=== PATIENT | female | born 1985 | race Asian ===

== ENCOUNTER 2021-06-27 11:04 | Inpatient (IN) | payer MEDICAID ==
[~2021-06-27] VITALS: Ht 172.7 cm; Wt 69.0 kg
[~2021-06-27 11:04] MED LIST: LITH300C3 PO; OLAN10TA74 PO
[2021-06-27] MEDS ORDERED: LORazepam 2 MG TABLET PO PRN (16:30)
[2021-06-27] MEDS ORDERED: INFLUENZA VIRUS VACCINE QVS 2021-22 (6MO+)/PF 60 MCG/0.5 ML SYRINGE IM. ONE (16:30)
[2021-06-27] MEDS ORDERED: HALOPERIDOL 5 MG TABLET PO PRN (16:30)
[2021-06-27] MEDS ORDERED: ZOLPIDEM TARTRATE 10 MG TABLET PO PRN (16:30)
[2021-06-27 17:54] VITALS: BP 100/65
[2021-06-28 00:19] VITALS: BP 102/63
[2021-06-28 07:18] LABS: BASOPHILS % (AUTO) 2.2 % (0.0-2.0); EOSINOPHILS % (AUTO) 4.5 % (1.0-6.0); HEMATOCRIT 32.9 % (36-46); HEMOGLOBIN 10.5 g/dL (12.0-16.0); LYMPHOCYTES # (AUTO) 1.3 K/uL (1.0-4.8); LYMPHOCYTES % (AUTO) 32.9 % (22.0-44.0); MEAN CORPUSCULAR HEMOGLOBIN 25.5 pg (26.0-34.0); MEAN CORPUSCULAR HGB CONC 31.9 G/dL (31.0-37.0); MEAN CORPUSCULAR VOLUME 80 fL (80-100); MONOCYTES # (AUTO) 0.5 K/uL (0.1-1.0); NEUTROPHILS # (AUTO) 1.9 K/uL (1.8-7.7); NEUTROPHILS % (AUTO) 47.4 % (40.0-70.0); PLATELET COUNT (AUTO) 312 K/uL (150-450); RED BLOOD CELL COUNT(AUTO) 4.11 MIL/uL (4.00-5.20); RED CELL DISTRIBUTION WIDTH 17.7 % (11.5-14.5)
[2021-06-28 07:44] LABS: HEMOGLOBIN A1C 5.6 % (3.8-5.6)
[2021-06-28 07:56] LABS: ALANINE AMINOTRANSFERASE 7 U/L (12-78); ALBUMIN 3.1 g/dL (3.4-5.0); ALKALINE PHOSPHATASE 45 U/L (46-116); ANION GAP 11 mmol/L (8-16); ASPARTATE AMINOTRANSFERASE 11 U/L (15-37); BILIRUBIN,TOTAL 0.4 mg/dL (0.1-1.0); CALCIUM, TOTAL 8.7 mg/dL (8.8-10.5); CARBON DIOXIDE 27 mmol/L (22-29); CHLORIDE 106 mmol/L (98-107); CHOL/HDL RATIO 3.6 (3.9-5.7); CHOLESTEROL 138 mg/dL (131-200); CREATININE 0.88 mg/dL (0.60-1.30); FREE T4 (FREE THYROXINE) 1.56 ng/dL (0.76-1.46); GLOMERULAR FILTR. RATE CALC > 60 mL/min (>60); GLUCOSE,RANDOM 83 mg/dL (70-110); HCG,QUANTITATIVE < 1 mIU/mL (0-6); HDL CHOLESTEROL 38 mg/dL (40-60); LDL CHOL (CALC.) 86 mg/dL (0-130); POTASSIUM 3.9 mmol/L (3.5-5.1); SODIUM SERUM 144 mmol/L (136-145); THYROID STIMULATING HORMONE 0.54 uIU/mL (0.36-3.74); TOTAL PROTEIN, SERUM 6.6 g/dL (6.4-8.2); TRIGLYCERIDES 68 mg/dL (15-150); UREA NITROGEN, BLOOD 9 mg/dL (7-18)
[2021-06-28 08:02] VITALS: BP 110/70
[2021-06-28] MEDS ORDERED: LOPERAMIDE HCL 2 MG CAPSULE PO PRN (08:45)
[2021-06-28] MEDS ORDERED: CloNIDine HCL 0.1 MG TABLET PO PRN (08:45)
[2021-06-28] MEDS ORDERED: ONDANSETRON HCL 4 MG TABLET PO PRN (08:45)
[2021-06-28] MEDS ORDERED: DOCUSATE SODIUM 100 MG CAPSULE PO PRN (08:45)
[2021-06-28] MEDS ORDERED: ACETAMINOPHEN 325 MG TABLET PO PRN (08:45)
[2021-06-28] MEDS ORDERED: BENZOCAINE/MENTHOL LOZENGE PO PRN (08:45)
[2021-06-28] MEDS ORDERED: MAG HYDROX/AL HYDROX/SIMETH ES 30 ML SUSPENSION UDCUP PO PRN (08:45)
[2021-06-28] MEDS ORDERED: MAGNESIUM HYDROXIDE SUSPENSION 30 ML UDCUP PO PRN (08:45)
[2021-06-28] MEDS ORDERED: OMEPRAZOLE 20 MG CAPSULE PO PRN (08:45)
[2021-06-28] MEDS ORDERED: BACITRACIN 28 GM OINTMENT TP PRN (08:45)
[2021-06-28] MEDS ORDERED: IBUPROFEN 600 MG TABLET PO PRN (08:45)
[2021-06-28] MEDS ORDERED: PETROLATUM,WHITE 28 GM JELLY TP PRN (08:45)
[2021-06-28] MEDS ORDERED: ALBUTEROL SULFATE HFA 90 MCG/PUFF 8 GM INHALER IH PRN (08:45)
[2021-06-28 16:09] VITALS: BP 114/82
[2021-06-28] MEDS: LITHIUM CARBONATE 300 MG CAPSULE PO SCH (20:05)
[2021-06-28] MEDS: OLANZapine 5 MG RAPDIS TABLET PO SCH (20:05)
[2021-06-29 00:20] VITALS: BP 109/75
[2021-06-29 07:23] LABS: BASOPHILS % (AUTO) 2.2 % (0.0-2.0); EOSINOPHILS % (AUTO) 4.7 % (1.0-6.0); HEMATOCRIT 31.4 % (36-46); HEMOGLOBIN 10.3 g/dL (12.0-16.0); LYMPHOCYTES # (AUTO) 1.1 K/uL (1.0-4.8); LYMPHOCYTES % (AUTO) 24.7 % (22.0-44.0); MEAN CORPUSCULAR HEMOGLOBIN 25.8 pg (26.0-34.0); MEAN CORPUSCULAR HGB CONC 32.8 G/dL (31.0-37.0); MEAN CORPUSCULAR VOLUME 79 fL (80-100); MONOCYTES # (AUTO) 0.5 K/uL (0.1-1.0); MONOCYTES % (AUTO) 12.3 % (2.0-9.0); NEUTROPHILS # (AUTO) 2.4 K/uL (1.8-7.7); NEUTROPHILS % (AUTO) 56.1 % (40.0-70.0); PLATELET COUNT (AUTO) 283 K/uL (150-450); RED BLOOD CELL COUNT(AUTO) 3.99 MIL/uL (4.00-5.20)
[2021-06-29 07:27] LABS: % IRON SATURATION 5.4 % (22-44); IRON, SERUM 19 mcg/dL (50-175); TOTAL IRON BINDING CAPACITY 347 mcg/dL (250-450)
[2021-06-29 07:40] LABS: ALANINE AMINOTRANSFERASE 8 U/L (12-78); ALBUMIN 3.2 g/dL (3.4-5.0); ALKALINE PHOSPHATASE 44 U/L (46-116); ANION GAP 9 mmol/L (8-16); ASPARTATE AMINOTRANSFERASE 13 U/L (15-37); BILIRUBIN,TOTAL 0.2 mg/dL (0.1-1.0); CALCIUM, TOTAL 8.7 mg/dL (8.8-10.5); CARBON DIOXIDE 26 mmol/L (22-29); CHLORIDE 103 mmol/L (98-107); CREATININE 0.78 mg/dL (0.60-1.30); GLOMERULAR FILTR. RATE CALC > 60 mL/min (>60); GLUCOSE,RANDOM 87 mg/dL (70-110); PHOSPHORUS 4.3 mg/dL (2.5-4.9); POTASSIUM 3.8 mmol/L (3.5-5.1); SODIUM SERUM 138 mmol/L (136-145); TOTAL PROTEIN, SERUM 6.7 g/dL (6.4-8.2); UREA NITROGEN, BLOOD 9 mg/dL (7-18)
[2021-06-29 08:04] VITALS: BP 114/76
[2021-06-29 16:04] VITALS: BP 103/69
[2021-06-29] MEDS: LITHIUM CARBONATE 300 MG CAPSULE PO SCH (21:18)
[2021-06-29] MEDS: OLANZapine 5 MG RAPDIS TABLET PO SCH (21:19)
[2021-06-30 00:45] VITALS: BP 108/67
[2021-06-30 07:08] LABS: APPEARANCE,URINE HAZY (CLEAR); BILIRUBIN,URINE NEGATIVE (NEGATIVE); GLUCOSE, URINE (UA) NEGATIVE (NEGATIVE); KETONES,URINE NEGATIVE (NEGATIVE); LEUKOCYTE ESTERASE ,URINE SMALL (NEGATIVE); NITRATE,URINE NEGATIVE (NEGATIVE); OCCULT BLOOD,URINE NEGATIVE (NEGATIVE); PH,URINE 7.5 (5.0-8.0); PROTEIN,URINE NEGATIVE (NEGATIVE); SPECIFIC GRAVITIY, URINE 1.014 (1.003-1.030); UROBILINOGEN,URINE <=1.0 mg/dL (<=1.0)
[2021-06-30 07:10] LABS: AMPHET/METH SCREEN,URINE NEGATIVE (NEGATIVE); BARBITURATE SCREEN, URINE NEGATIVE (NEGATIVE); BENZODIAZEPINES SCREEN,URINE NEGATIVE (NEGATIVE); CANNABINOID SCREEN,URINE POSITIVE (NEGATIVE); COCAINE SCREEN,URINE NEGATIVE (NEGATIVE); METHADONE SCREEN, URINE NEGATIVE (NEGATIVE); OPIATE SCREEN,URINE NEGATIVE (NEGATIVE)
[2021-06-30 07:18] LABS: PHENCYCLIDINE SCREEN,URINE NEGATIVE (NEGATIVE)
[2021-06-30 07:39] LABS: BACTERIA,URINE Few /HPF (None Seen); RBC,URINE None Seen /HPF (0-2); SQUAMOUS EPITHELIAL CELL,UR Few /LPF (None Seen); WBC,URINE 0-2 /HPF (0-5)
[2021-06-30 07:40] LABS: AMORPHOUS SEDIMENT,UR Few /LPF (None Seen)
[2021-06-30 08:07] VITALS: BP 112/70
[2021-06-30 16:25] VITALS: BP 115/82
[2021-06-30] MEDS: OLANZapine 5 MG RAPDIS TABLET PO SCH (21:06)
[2021-06-30] MEDS: LITHIUM CARBONATE 300 MG CAPSULE PO SCH (21:06)
[2021-07-01 02:33] VITALS: BP 113/78
[2021-07-01 08:06] VITALS: BP 111/75
[2021-07-01 16:04] VITALS: BP 124/65
[2021-07-01] MEDS: OLANZapine 5 MG RAPDIS TABLET PO SCH (21:15)
[2021-07-01] MEDS: LITHIUM CARBONATE 300 MG CAPSULE PO SCH (21:15)
[2021-07-02 00:53] VITALS: BP 110/66
[2021-07-02 08:02] VITALS: BP 99/58
[2021-07-02 15:11] LABS: GLUCOMETER DEV NAME(LOC) POC.BV
[2021-07-02 16:03] VITALS: BP 112/77
[2021-07-02] MEDS: LITHIUM CARBONATE 300 MG CAPSULE PO SCH (20:57)
[2021-07-02] MEDS: OLANZapine 5 MG RAPDIS TABLET PO SCH (20:57)
[2021-07-03 04:47] VITALS: BP 118/68
[2021-07-03 08:04] VITALS: BP 98/53
[2021-07-03 16:07] VITALS: BP 100/65
[2021-07-03] MEDS: NICOTINE POLACRILEX 2 MG LOZENGE PO PRN (16:56)
[2021-07-03] MEDS: LITHIUM CARBONATE 300 MG CAPSULE PO SCH (21:06)
[2021-07-03] MEDS: OLANZapine 5 MG RAPDIS TABLET PO SCH (21:07)
[2021-07-04 00:47] VITALS: BP 102/63
[2021-07-04 08:20] VITALS: BP 102/61
[2021-07-04] MEDS: NICOTINE POLACRILEX 2 MG LOZENGE PO PRN ×2 (08:55→16:48)
[2021-07-04 16:06] VITALS: BP 106/62
[2021-07-04] MEDS: LITHIUM CARBONATE 300 MG CAPSULE PO SCH (21:30)
[2021-07-04] MEDS: OLANZapine 5 MG RAPDIS TABLET PO SCH (21:31)
[2021-07-05 00:52] VITALS: BP 108/62
[2021-07-05 08:12] VITALS: BP 102/58
[2021-07-05 16:09] VITALS: BP 105/66
[2021-07-05] MEDS: NICOTINE POLACRILEX 2 MG LOZENGE PO PRN (20:04)
[2021-07-05] MEDS: LITHIUM CARBONATE 300 MG CAPSULE PO SCH (21:05)
[2021-07-05] MEDS: OLANZapine 5 MG RAPDIS TABLET PO SCH (21:05)
[2021-07-06 01:06] VITALS: BP 107/62
[2021-07-06 08:19] VITALS: BP 100/64
[2021-07-06] MEDS ORDERED: LITH300C3 PO (11:46)
[2021-07-06] MEDS ORDERED: OLAN5TAB94 PO (11:46)
== END 2021-07-06 14:11 | disposition home or self-care (01) | DRG 750 ==
LOC: B2S 16:29
PROVIDERS: ADMIT Psychiatry & Neurology Psychiatry; ATTEND Psychiatry & Neurology Psychiatry
DX: F25.9 Schizoaffective disorder, unspecified (principal); D64.9 Anemia, unspecified; F19.10 Other psychoactive substance abuse, uncomplicated; F41.9 Anxiety disorder, unspecified; Z20.822 Contact with and (suspected) exposure to COVID-19; Z87.891 Personal history of nicotine dependence
CPT/HCPCS: 80053; 80061; 80178; 80307; 81001; 83036; 83540; 83550; 83735; 84100; 84439; 84443; 84702; 85025; Q9967